=== PATIENT | female | born 1960 | race Caucasian/White ===

== ENCOUNTER 2018-05-19 05:49 | Day surgery (SDC) | payer OTHER ==
[2018-05-19] MEDS ORDERED: FENTAnyl 50 MCG/ML VIAL (08:48)
[2018-05-19] MEDS ORDERED: MIDAZOLAM 1 MG/ML 2 ML INJ ×2 (08:48)
== END 2018-05-19 11:51 | disposition home or self-care (01) ==
LOC: GIL 05:49
DX: Z12.11 Encounter for screening for malignant neoplasm of colon (principal); K64.8 Other hemorrhoids
CPT/HCPCS: 45378